=== PATIENT | female | born 1955 | race Caucasian/White ===

== ENCOUNTER 2018-02-26 13:29 | Outpatient (CLI) | payer BC | END 2018-02-26 13:30 | disposition home or self-care (01) | LOC: RT 13:29 | PROVIDERS: ATTEND Internal Medicine | DX: R06.00 Dyspnea, unspecified (principal) | CPT/HCPCS: 94010 ==

== ENCOUNTER 2018-11-27 11:44 | Outpatient (CLI) | payer BC ==
--- NOTE | 2018-11-29 14:43 | CT Report ---
Reason: TOBACCO USE Procedure Date: 11/27/2018 Accession Number: [id number] / [id number] Procedure: CT - Low Dose Lung Cancer Screen CPT Code: FULL RESULT: EXAM CT LUNG SCREEN EXAM DATE: 11/27/2018 12:02 PM. HISTORY: 63-year-old patient with [id number]-thpr smoking history. Per the referring physician, the patient is either a current smoker or has quit within the last 15 years. COMPARISON: None. TECHNIQUE: CT examination of the entire thorax without contrast was performed using low-dose technique. Thin section coronal, axial, sagittal and MIP axial images were obtained. In accordance with CT protocol optimization, one or more of the following dose reduction techniques were utilized for this exam: automated exposure control, adjustment of mA and/or KV based on patient size, or use of iterative reconstructive technique. FINDINGS: Nodules (calcified nodules clearly representing benign granulomata are not listed here): Right upper lobe: None. Right middle lobe: None. Right lower lobe: None. Left upper lobe: None. Left lower lobe: None. Emphysema: Mild. Pleura: Unremarkable. Aorta: Mild to moderate calcifications. Mediastinum: Calcified hilar lymph nodes, granulomatous. Coronary calcifications: Moderate three-vessel. Other pulmonary findings: Bilateral lower lobe predominant calcified nodules, granuloma. Other extrapulmonary findings: Likely cholelithiasis. IMPRESSION: Lung-RADS ASSESSMENT CATEGORY: 2 - benign appearance or behavior. Probability of malignancy: Less than 1%. Prior granulomatous disease. RECOMMENDATION: Continue annual low-dose chest CT. RADIA
== END 2018-11-27 11:45 | disposition home or self-care (01) ==
LOC: DI 11:44
PROVIDERS: ATTEND Internal Medicine
DX: Z12.2 Encounter for screening for malignant neoplasm of respiratory organs (principal); J43.9 Emphysema, unspecified; Z72.0 Tobacco use

== ENCOUNTER 2019-02-20 15:41 | Outpatient (CLI) | payer BC ==
[2019-02-20 16:40] LABS: CREATININE 0.7 mg/dL (0.4-1.0)
[2019-02-20] MEDS ORDERED: GADOBUTROL 7.5 MMOL/7.5 ML VIAL IVP ONE (17:24)
[2019-02-20] MEDS ORDERED: GADOBUTROL 7.5 MMOL/7.5 ML VIAL ONE (17:28)
--- NOTE | 2019-02-20 18:22 | MRI Report ---
Reason: DIZZINESS AND GIDDINESS Procedure Date: 02/20/2019 Accession Number: [id number] / [id number] Procedure: MRI - Brain W/WO CPT Code: Final Report FULL RESULT: EXAM: MRI BRAIN WITHOUT AND WITH CONTRAST EXAM DATE: 02/20/2019 05:33 PM. CLINICAL HISTORY: Dizziness and giddiness. COMPARISON: None. TECHNIQUE: Multiplanar, multisequence T1-weighted and fluid-sensitive MR sequences of the brain were performed before and after administration of intravenous contrast. Sequences optimized for routine evaluation. Other: None. IV Contrast: 6.5 cc Gadavist. FINDINGS: Brain Volume: Normal for age. Parenchyma: No acute hemorrhage, mass, or infarct. An oval 12 mm focus of signal abnormality is seen in the right mid and posterior lux. This demonstrates decreased T1 with increased T2/FLAIR signal. Paintbrush-like enhancement is noted. Hypointense magnetic susceptibility is present. At the anterior margin of this, an arching enhancing tubular structure is seen through the anterior lux consistent with adjacent vessel. Medial to this, punctate hypointense focus with blooming magnetic susceptibility is seen in the midline of the lux. No positive mass effect is seen. No restricted diffusion is present. Mild scattered T2/FLAIR bright white matter signal is seen in the cerebral hemispheres. No cortical signal abnormality is evident. No intracranial mass. No parenchymal hematoma. Ventricles/Cisterns: No hydrocephalus. No abnormal extra-axial fluid collection or hemorrhage. Orbits: Symmetric and unremarkable. Sella Turcica: The pituitary gland, cavernous sinuses, suprasellar cistern and optic chiasm are unremarkable. IAC: Symmetric and unremarkable. Vasculature: Normal signal flow void is seen in the major arterial structures at the skull base. The dural sinuses are patent and enhance normally. Sinuses: No acute sinus disease. Bones: No focal pathologic appearing marrow signal changes. Other: None. IMPRESSION: 1. No acute intracranial abnormality. No acute infarct, mass, or hemorrhage. 2. Oval 12 mm focus of signal abnormality with faint paintbrush-like enhancement and hypointense magnetic susceptibility seen in the right lux. This is consistent with capillary telangiectasia. Anterior to this an enhancing tubular structure is seen which could be consistent with cavernous malformation. Medial to this, punctate hypointense focus with blooming magnetic susceptibility is seen consistent with petechial microhemorrhage. Punctate cavernous malformation would be a consideration. 3. Mild white matter signal abnormality is seen in the cerebral hemispheres. This is nonspecific. This can be seen secondary to small vessel ischemic change. RADIA
== END 2019-02-20 15:42 | disposition home or self-care (01) ==
LOC: DI 15:41
PROVIDERS: ATTEND Registered Nurse
DX: R42 Dizziness and giddiness (principal); R90.89 Other abnormal findings on diagnostic imaging of central nervous system
CPT/HCPCS: 36415; 70553; 82565; A9585

== ENCOUNTER 2019-12-30 11:59 | Outpatient (CLI) | payer BC ==
--- NOTE | 2019-12-30 15:36 | CT Report ---
PROCEDURE: Low Dose Lung Cancer Screen INDICATIONS: SCREENING FOR MALIGNANT NEOPLASM TECHNIQUE: Noncontrast low-dose 5 mm thick sections acquired from the pulmonary apices to the posterior costophr enic angles. 7 mm thick coronal and sagittal MIP reformats were then acquired. For radiation dose r eduction, the following was used: automated exposure control, adjustment of mA and/or kV according t o patient size. COMPARISON: None. FINDINGS: Image quality: Excellent. Lungs and pleura: Mediastinum: Heart size is normal. No pericardial effusion. No mediastinal adenopathy by size crit eria. Thoracic aorta and central pulmonary arteries are normal in size. Esophagus is normal in tierra radha. No hiatal hernia. Bones and chest wall: No suspicious bony lesions. No vertebral body compression fractures. No axil claudette or supraclavicular adenopathy by size criteria. The thyroid is normal in size. Abdomen: Visualized upper abdomen solid organs and bowel loops appear normal in the absence of contr ast. 2 calcified gallstones appear present within the gallbladder lumen, without adjacent inflammati on, each measuring approximately 5 mm. IMPRESSION: Mild centrilobular emphysema pattern, no early manifestation of underlying lung malignancy is found. Incidental note is made of what appears to be 2 calcified gallstones within the gallbladder lumen, ea ch approximately 5 mm. Lung RADS 1, recommend follow-up annual screening for early manifestation of lung malignancy in one y ear. Reviewed by: Alphonso Whittington MD on 12/30/2019 3:34 PM PDT Approved by: Alphonso Whittington MD on 12/30/2019 3:34 PM PDT Station ID: [id number]
== END 2019-12-30 12:00 | disposition home or self-care (01) ==
LOC: DI 11:59
PROVIDERS: ATTEND Physician Assistant
DX: Z12.2 Encounter for screening for malignant neoplasm of respiratory organs (principal); J43.2 Centrilobular emphysema; F17.210 Nicotine dependence, cigarettes, uncomplicated
CPT/HCPCS: G0297 ×2

== ENCOUNTER 2020-01-23 11:58 | Outpatient (CLI) | payer BC ==
[2020-01-23 12:21] LABS: CALCIUM 9.7 mg/dL (8.5-10.3); CREATININE 0.9 mg/dL (0.4-1.0)
[2020-01-23] MEDS ORDERED: IOVERSOL 320 100 ML VIAL IVP ONE ×2 (12:26→17:50)
--- NOTE | 2020-01-23 14:28 | CT Report ---
PROCEDURE: ANGIO NECK W INDICATIONS: YASSINE'S SYNDROME CONTRAST: IV CONTRAST: Optiray 320 ml: 80 PO CONTRAST: *NO PO CONTRAST TECHNIQUE: After the administration of intravenous contrast, 1.5 mm axial sections acquired from the aortic arch to the [place] of [place]. Coronal 3-D maximum intensity projection (MIP) and/or volume rendering ref ormats were then performed. For radiation dose reduction, the following was used: automated exposur e control, adjustment of mA and/or kV according to patient size. COMPARISON: None. FINDINGS: Image quality: Excellent. There is a standard three-vessel aortic arch configuration. Atherosclerotic plaque and calcification at the origin of the left subclavian artery without hemodynamically significant stenosis. The bilater al common carotid arteries and carotid bifurcations are widely patent. There is no narrowing of the e xtracranial internal carotid arteries. There is mild atherosclerotic plaque and calcification in the carotid siphons. The cervical vertebral arteries are widely patent throughout their visualized course . There is some mild intracranial atherosclerosis of the V4 segments. Of unlikely clinical significan ce, there appears to be a small infundibulum the origin of a small unnamed vessel arising directly fr om the external carotid artery and coursing laterally and inferiorly to supply the sternocleidomastoi d muscle (series 9 image [phone]). Limited evaluation of the intracranial compartment reveals no findings of mass effect, midline shift, or evidence of abnormal enhancement. Orbital structures are unremarkable. Paranasal sinuses and mast oid air cells are predominantly clear. Visualized osseous structures demonstrate no acute or suspicious lesion. There are degenerative james es in the mid cervical spine. Evaluation of the neck soft tissues is limited due to the arterial phas e of contrast. Within this limitation, there is no evidence of abnormal mucosal enhancement. No focal asymmetry of the upper digestive tract identified. No threshold enlarged cervical or supraclavicular lymph node. The parotid and submandibular glands are within normal limits. There is a left thyroid n odule measuring approximately 1.1 cm with heterogenous internal enhancement. The included lung apices are clear of an mild emphysematous changes. There is no mass in the upper me diastinum, visualized above the level of the zuhair. IMPRESSION: No findings to explain Yassine syndrome. Specifically, no neck mass, upper mediastinal mass, or lung m ass. No significant abnormality within the carotid sheath. Reviewed by: Seng De La Cruz MD on 01/23/2020 2:27 PM PDT Approved by: Seng De La Cruz MD on 01/23/2020 2:27 PM PDT Station ID: [id number]
== END 2020-01-23 11:59 | disposition home or self-care (01) ==
LOC: DI 11:58
PROVIDERS: ATTEND Internal Medicine
DX: G90.2 Horner's syndrome (principal)
CPT/HCPCS: 36415; 70498; 80048; Q9967

== ENCOUNTER 2020-04-06 12:45 | Outpatient (CLI) | payer BC | END 2020-04-06 12:46 | disposition home or self-care (01) | LOC: COV 12:45 | PROVIDERS: ATTEND Family Medicine | DX: R50.9 Fever, unspecified (principal); M79.10 Myalgia, unspecified site; R53.83 Other fatigue; R09.81 Nasal congestion; R11.0 Nausea; Z20.828 Contact with and (suspected) exposure to other viral communicable diseases ==

== ENCOUNTER 2021-10-14 13:46 | Outpatient (CLI) | payer MEDICARE ==
[2021-10-14 19:48] LABS: BASOPHILS # (AUTO) 0.1 10^3/uL (0.0-0.1); BASOPHILS % (AUTO) 0.8 %; EOSINOPHILS # (AUTO) 0.5 10^3/uL (0.0-0.7); EOSINOPHILS % (AUTO) 4.9 %; HCT - HEMATOCRIT 48.3 % (37.0-47.0); HGB - HEMOGLOBIN 15.6 g/dL (12.0-16.0); LYMPHOCYTES # (AUTO) 2.8 10^3/uL (1.5-3.5); MEAN CORPUSCULAR HEMOGLOBIN 28.1 pg (27.0-31.0); MEAN CORPUSCULAR HGB CONC 32.3 g/dL (32.0-36.0); MEAN CORPUSCULAR VOLUME 86.9 fL (81.0-99.0); MEAN PLATELET VOLUME 10.9 fL (7.9-10.8); MONOCYTES # (AUTO) 0.8 10^3/uL (0.0-1.0); MONOCYTES % (AUTO) 8.2 %; NEUTROPHILS # (AUTO) 5.4 10^3/uL (1.5-6.6); NEUTROPHILS % (AUTO) 56.7 %; PLT - PLATELET COUNT 393 10^3/uL (130-450); RED BLOOD COUNT 5.56 10^6/uL (4.20-5.40); RED CELL DISTRIBUTION WIDTH 14.5 % (12.0-15.0); WHITE BLOOD COUNT 9.6 x10^3/uL (4.8-10.8)
[2021-10-14 19:57] LABS: ALBUMIN 3.1 g/dL (3.2-5.5); ALBUMIN/GLOBULIN RATIO 0.9 (1.0-2.2); BILIRUBIN,TOTAL 0.5 mg/dL (0.2-1.0); CALCIUM 9.2 mg/dL (8.5-10.3); CREATININE 0.9 mg/dL (0.4-1.0); TOTAL PROTEIN 6.7 g/dL (6.7-8.2)
== END 2021-10-14 13:47 | disposition home or self-care (01) ==
LOC: LAB.S 13:46
PROVIDERS: ATTEND Internal Medicine
DX: I10 Essential (primary) hypertension (principal)
CPT/HCPCS: 36415; 80053; 85025

== ENCOUNTER 2022-10-30 11:10 | Emergency (ER) | payer MEDICARE, OTHER ==
--- NOTE | 2022-10-30 11:28 | ED Physician Documentation ---
PD HPI BACK PAIN - Stated complaint Stated Complaint: BACK PX - Chief complaint Chief Complaint: Back Pain - History obtained from History obtained from: Patient - History of Present Illness Timing - onset: How many days ago (2 days ago with some lower back tighness/pain after doing gardening that involved streatching and reaching. Yesterday then lifted a 5 gallon bucket with dirt/etc in it, that was heavy and she felt quick onset then of right low back pain. This has persisted and is worse/stiff today.) Timing - duration: Days (2) Timing - details: Gradual onset (initially but then abrupt worse with heavy lifting yesterday.), Still present Location: Lower, Right Quality: Pain, Spasm, Aching Associated symptoms: No: Fever, Weakness, Numbness, Incontinent of urine Worsened by: Movement, Lifting, Palpation Contributing factors: Lifting, Twisting Similar symptoms before: Has not had sx before Recently seen: Not recently seen Review of Systems Constitutional: denies: Fever, Chills GI: denies: Abdominal Pain Skin: denies: Rash, Lesions Neurologic: denies: Focal weakness, Numbness PD PAST MEDICAL HISTORY - Past Medical History Cardiovascular: Hypertension, High cholesterol Respiratory: None Neuro: None Endocrine/Autoimmune: None GI: G[employer] STE[employer]: None : None HEENT: None Psych: Depression Musculoskeletal: None Derm: None - Past Surgical History Past Surgical History: Yes - Present Medications Home Medications: Ambulatory Orders Medication Instructions Recorded Confirmed Aspirin EC [Ecotrin] 81 mg PO DAILY 10/25/21 10/25/21 Losartan [Cozaar] 50 mg PO DAILY 10/25/21 10/25/21 Metoprolol Succinate [Toprol Xl] 50 mg PO DAILY 10/25/21 10/25/21 Nifedipine [Procardia Xl] 60 mg PO DAILY 10/25/21 10/25/21 Omeprazole Magnesium 20 mg PO DAILY PRN 10/25/21 10/25/21 buPROPion HCL [Wellbutrin Xl] 300 mg PO DAILY 10/25/21 10/25/21 HYDROcod/ACETAM 5/325 [[place] 5/325] 1 ea PO Q6H PRN #18 tablet 10/30/22 methocarbamoL [Robaxin] 500 mg PO TID PRN #25 tablet 10/30/22 - Allergies Allergies/Adverse Reactions: Allergies Allergy/AdvReac Type Severity Reaction Status Date / Time No Known Drug Allergies Allergy Verified 10/30/22 11:16 - Social History Does the pt smoke?: No Smoking Status: Former smoker Does the pt drink ETOH?: Yes Does the pt have substance abuse?: Yes - Immunizations Immunizations are current?: Yes PD ED PE NORMAL - Vitals Vital signs reviewed: Yes - General General: Alert and oriented X 3, Well developed/nourished, Other (appears in discomfort from low back, guarding ROM. ) - Cardiac Cardiac: RRR, No murmur - Respiratory Respiratory: Clear bilaterally - Abdomen Abdomen: Soft, Non tender - Back Back: No spinal TTP (she is tender at right paralumbar area with focal tenderness and feeling of muscle spasm above right iliac crest. No rash nor sor es. ) - Derm Derm: Normal color, Warm and dry - Extremities Extremities: No edema, No calf tenderness / cord - Neuro Neuro: Alert and oriented X 3, No motor deficit, No sensory deficit, Normal speech Results - Vitals Vitals: Vital Signs - 24 hr 10/30/22 10/30/22 11:12 13:24 Temperature 36.3 C L 36.5 C Heart Rate 65 62 Respiratory 16 16 Rate Blood Pressure 149/78 H 130/80 O2 Saturation 99 100 Oxygen O2 Source Room air PD Medical Decision Making - ED course Complexity details: reviewed results (Patient changed decision and prefers no CT/imaging at this time. Will consider again if not improving well. ), re- evaluated patient (her pain is improved though still present after IM dose Dilaudid. I also did trigger injection t area of focal muscle tenderness and spawm in right just above iliac creast, with Lidocaine and Kenalog without problems. ), considered differential (onset of low back pain after some stretching/etc cutting stefania bushes and gardening. But abruptly more when lifting 5 galllon bucket with dirt/etc in it. Most likely muscular, but abrupt with a load could cause compression fx, etc. Patient asking about CT and shared decision is that is reasonable.), d/w patient Departure - Departure Disposition: 01 Home, Self Care Clinical Impression: Back pain, acute Condition: Stable Record reviewed to determine appropriate education?: Yes Instructions: ED Low Back Pain Injury Prescriptions: HYDROcod/ACETAM 5/325 [[place] 5/325] 1 ea PO Q6H PRN #18 tablet PRN Reason: Pain methocarbamoL [Robaxin] 500 mg PO TID PRN #25 tablet PRN Reason: Spasms Comments: Continue with your usual medications. Use basic anti-inflammatories such as ibuprofen or naproxen to tablets 2-3 times daily with food for the next several days to a week. At methocarbamol muscle relaxant 3 times daily for spasms and stiffness. I did do a injection in the muscle area near that spasm with a steroid anti- inflammatory and some anesthetic. Hopefully this will help locally in that spot. Gentle stretching heat or massage are good for that area. Light activity is okay. Add Tylenol every 4-6 hours if needed for pain or hydrocodone/acetaminophen if needed for worse pain. I would anticipate improvement over the next several days and resolved over a week or so. Hopefully even sooner. Follow-up with your primary care if not improving in that timeframe. I sent your prescription to [facility] in [place]. I am prescribing a short course of narcotic pain medication for you. These are potentially dangerous and addictive medications that should be used carefully. These medications may constipate you. Take an [id number] stool softener such as docusate twice daily with plenty of water while taking these medications. If you go 24 hours without a bowel movement, take [id number] MiraLAX, per package instructions. Do not drink or drive while taking these medications. If you received narcotic or sedating medications while in the emergency department do not drive for 24 hours. Store this medication in a safe, secure place and out of reach of children. It is a violation of federal law to give or sell this medication to another person or to use in a manner other than prescribed. The ED will not refill narcotic prescriptions, including prescriptions lost or stolen. You can dispose of unwanted medications at the [facility]'s office or at several pharmacies such as [facility]. Discharge Date/Time: 10/30/22 13:15
[2022-10-30] MEDS ORDERED: ACETAMINOPHEN 325 MG TABLET PO STA (11:53)
[2022-10-30] MEDS ORDERED: HYDROmorphone 1 MG/ML CARPUJECT IM STA (11:53)
[2022-10-30] MEDS ORDERED: methocarbamoL 500 MG TABLET PO STA (11:53)
[2022-10-30] MEDS ORDERED: TRIAMCINOLONE 40 MG/ML VIAL MC STA (11:53)
[2022-10-30 13:31] VITALS: BP 130/80
== END 2022-10-30 13:15 | disposition home or self-care (01) ==
LOC: ED 11:10
DX: M54.50 Low back pain, unspecified (principal); Z87.891 Personal history of nicotine dependence
CPT/HCPCS: 99281; 99283; A9270; J1170

== ENCOUNTER 2023-07-17 08:00 | Outpatient (CLI) | payer MEDICARE, OTHER ==
[2023-07-17 21:10] LABS: BF CLARITY HAZY; BF COLOR YELLOW; BF SOURCE SYNOVIAL; MESOTHELIAL %, BF 0 %
[2023-07-17 21:12] LABS: CC,BF RBC QNS /mm^3; CC,BF WBC QNS /mm^3
== END 2023-07-17 23:59 | disposition home or self-care (01) ==
LOC: LAB 08:00
PROVIDERS: ATTEND Emergency Medicine
DX: M70.21 Olecranon bursitis, right elbow (principal)
CPT/HCPCS: 87070; 87205; 89051